=== PATIENT | male | born 1995 | race Caucasian/White ===

== ENCOUNTER 2021-02-11 15:48 | Emergency (ER) | payer BC ==
[~2021-02-11] VITALS: Ht 180.3 cm; Wt 131.9 kg
--- NOTE | 2021-02-11 16:41 | PHYS DOC ---
Past History Past Surgical History: Tonsillectomy, Other Additional Past Surgical Histo: nasal and septum surgery Alcohol Use: Occasionally General Adult EDM: Chief Complaint: HEMATEMESIS/VOMITING BLOOD HPI: HPI: 45-year-old male presents with hematemesis. The patient has had intermittent vomiting for years. He has been having blood in his emesis on occasion a couple months then every month and every weekend he states it is happening daily now. He is feeling generally weak overall and is concerned about anemia. Patient does not drink alcohol. She denies drug use. He has not seen a GI doctor. He does not like going to the doctor. He does have a GI consult scheduled for early next month. He is not on any medications. He denies fever or chills. Review of Systems: Review of Systems: Constitutional: Denies fever or chills Eyes: Denies change in visual acuity HENT: Denies nasal congestion or sore throat Respiratory: Denies cough or shortness of breath Cardiovascular: Denies chest pain or edema GI: Hematemesis : Denies dysuria Musculoskeletal: Denies back pain or joint pain Integument: Denies rash Neurologic: Denies headache, focal weakness or sensory changes Endocrine: Denies polyuria or polydipsia Lymphatic: Denies swollen glands Psychiatric: Denies depression or anxiety Current Medications: Current Meds: Current Medications Medications (Trade) Dose Ordered Sig/Claudia Start Time Stop Time Status Last Admin Dose Admin Iohexol (Omnipaque 300 Mg/ml) 75 ml 1X ONCE 02/11/21 16:45 02/11/21 16:46 UNV Pantoprazole Sodium (Protonix Vial) 80 mg 1X ONCE 02/11/21 16:45 02/11/21 16:46 UNV Sodium Chloride 1,000 ml @ 1,000 mls/hr 1X ONCE 02/11/21 16:45 02/11/21 17:44 UNV Allergies: Allergies: Allergies Coded Allergies Type Severity Reaction Last Updated Verified No Known Drug Allergies 02/11/21 No Physical Exam: PE: Constitutional: Well developed, well nourished, no acute distress, non-toxic appearance. [] HENT: Normocephalic, atraumatic, bilateral external ears normal, oropharynx moist, no oral exudates, nose normal. [] Eyes: PERRLA, EOMI, conjunctiva normal, no discharge. [] Neck: Normal range of motion, no tenderness, supple, no stridor. [] Cardiovascular:Heart rate regular rhythm, no murmur [] Lungs & Thorax: Bilateral breath sounds clear to auscultation [] Abdomen: Bowel sounds normal, soft, no tenderness, no masses, no pulsatile masses. [] Skin: Warm, dry, no erythema, no rash. [] Back: No tenderness, no CVA tenderness. [] Extremities: No tenderness, no cyanosis, no clubbing, ROM intact, no edema. [] Neurologic: Alert and oriented X 3, normal motor function, normal sensory function, no focal deficits noted. [] Psychologic: Affect normal, judgement normal, mood normal. [] Current Patient Data: Vital Signs: Vital Signs Date Time Temp Pulse Resp B/P (MAP) Pulse Ox O2 Delivery O2 Flow Rate FiO2 02/11/21 16:01 99.2 119 19 159/98 (118) 98 Room Air EKG: EKG: [] Radiology/Procedures: Radiology/Procedures: [] Impressions: Exam: CT of abdomen and pelvis with contrast INDICATION: Epigastric pain, hematemesis TECHNIQUE: Sequential axial images through the abdomen and pelvis obtained following the administration of 75 mL of Isovue-370 IV contrast. Sagittal and coronal reformatted images were reconstructed from the axial data and reviewed. Exposure: One or more of the following in the visualized dose reduction techniques were utilized for this examination: 1. Automated exposure control 2. Adjustment of the MA and/or KV according to patient size 3. Use of iterative of reconstructive technique Comparisons: None FINDINGS: Heart size is normal. No pericardial effusion. Visualized lung bases are clear. No pleural effusion. Liver, spleen, pancreas, gallbladder and adrenals are unremarkable. Kidneys demonstrate symmetric enhancement. No perinephric inflammation or hydronephrosis. No renal or ureteral calculi are identified. Bladder is partially distended and appears thin-walled. Prostate is not enlarged. Large and small bowel are unremarkable. Appendix is normal. No free abdominal air or fluid. No obstruction. Abdominal aorta has a normal course and caliber. Abdominal vasculature is patent. No enlarged intra-abdominal lymph nodes are identified. No suspicious osseous lesions or acute fractures. IMPRESSION: No acute processes identified within the abdomen or pelvis. Electronically signed by: Harmeet Briones MD (02/11/2021 5:27 PM) [facility] DICTATED AND SIGNED BY: HARMEET BRIONES MD DATE: 02/11/21 172 CC: CHRISTIANNE LOREDO DO; PCP,NO ~MTH0 0 Heart Score: C/O Chest Pain: N/A Risk Factors: Risk Factors: DM, Current or recent (<one month) smoker, HTN, HLP, family history of CAD, obesity. Risk Scores: Score 0 - 3: 2.5% MACE over next 6 weeks - Discharge Home Score 4 - 6: 20.3% MACE over next 6 weeks - Admit for Clinical Observation Score 7 - 10: 72.7% MACE over next 6 weeks - Early Invasive Strategies Course & Med Decision Making: Course & Med Decision Making Pertinent Labs and Imaging studies reviewed. (See chart for details) I have given the patient Protonix 80 mg, 4 mg Zofran, and a liter of normal saline. The patient CT of abdomen pelvis is negative for acute findings. His labs are unremarkable. His hemoglobin is normal. He has had no vomiting in the emergency room. I will place the patient on Protonix 40 mg daily and give him a prescription for Zofran. I have encouraged him strongly to keep his GI appointment. He is stable for discharge at this time. [] Dragon Disclaimer: Dragambar Disclaimer: This electronic medical record was generated, in whole or in part, using a voice recognition dictation system. Departure Departure: Impression: Primary Impression: Hematemesis Qualified Codes: K92.0 - Hematemesis Disposition: HOME / SELF CARE / HOMELESS Condition: STABLE Referrals: PCP,NO (PCP) Patient Instructions: Hematemesis Scripts Pantoprazole Sodium (PROTONIX) 40 Mg Tablet. 1 TAB PO DAILY for GERD, #30 TAB 0 Refills Prov: CHRISTIANNE LOREDO DO 02/11/21 Ondansetron (ONDANSETRON ODT) 4 Mg Tab.rapdis 1 TAB PO PRN Q6-8HRS PRN for VOMITING, #16 TAB Prov: CHRISTIANNE LOREDO DO 02/11/21 CHRISTIANNE LOREDO DO Feb 11, 2021 16:41
[2021-02-11] MEDS ORDERED: PANTOPRAZOLE IV 40 MG VIAL. IVP ONE (16:45)
[2021-02-11] MEDS ORDERED: IV NORMAL SALINE 1,000ML 1,000 ML IV ONE (16:45)
[2021-02-11] MEDS ORDERED: IOHEXOL 300 MG/ML 75 ML VIAL. IV ONE (16:45)
--- NOTE | 2021-02-11 17:30 | RAD ---
Exam: CT of abdomen and pelvis with contrast INDICATION: Epigastric pain, hematemesis TECHNIQUE: Sequential axial images through the abdomen and pelvis obtained following the administrati on of 75 mL of Isovue-370 IV contrast. Sagittal and coronal reformatted images were reconstructed fro m the axial data and reviewed. Exposure: One or more of the following in the visualized dose reduction techniques were utilized for this examination: 1. Automated exposure control 2. Adjustment of the MA and/or KV according to patient size 3. Use of iterative of reconstructive technique Comparisons: None FINDINGS: Heart size is normal. No pericardial effusion. Visualized lung bases are clear. No pleural effusion. Liver, spleen, pancreas, gallbladder and adrenals are unremarkable. Kidneys demonstrate symmetric enhancement. No perinephric inflammation or hydronephrosis. No renal or ureteral calculi are identified. Bladder is partially distended and appears thin-walled. Prostate is not enlarged. Large and small bowel are unremarkable. Appendix is normal. No free abdominal air or fluid. No obstru ction. Abdominal aorta has a normal course and caliber. Abdominal vasculature is patent. No enlarged intra-abdominal lymph nodes are identified. No suspicious osseous lesions or acute fractures. IMPRESSION: No acute processes identified within the abdomen or pelvis. Electronically signed by: Harmeet Loya MD (02/11/2021 5:27 PM) [facility]
[2021-02-11 17:37] LABS: BASO % 0 % (0-3); EOS % 1 % (0-3); HEMATOCRIT 48.6 % (39.0-53.0); HEMOGLOBIN 16.6 g/dL (13.0-17.5); LYMPH # 0.9 x10^3/uL (1.0-4.8); LYMPH % 19 % (24-48); MEAN CORPUSCULAR HEMOGLOBIN 32 pg (25-35); MEAN CORPUSCULAR HGB CONC 34 g/dL (31-37); MEAN CORPUSCULAR VOLUME 93 fL (79-100); MONO # 0.5 x10^3/uL (0.0-1.1); MONO % 10 % (0-9); NEUT # 3.4 x10^3uL (1.8-7.7); NEUT % 70 % (31-73); PLATELET COUNT 232 x10^3/uL (140-400); RED BLOOD COUNT 5.25 x10^6/uL (4.30-5.70); RED CELL DISTRIBUTION WIDTH 12.8 % (11.5-14.5); WHITE BLOOD COUNT 4.8 x10^3/uL (4.0-11.0)
[2021-02-11] MEDS ORDERED: ONDA4TAB12 PO (17:40)
[2021-02-11] MEDS ORDERED: PANT40TA3 PO (17:41)
[2021-02-11 17:42] LABS: CALCIUM 8.7 mg/dL (8.5-10.1); CREATININE 1.1 mg/dL (0.7-1.3); GFR 82.2; POTASSIUM 3.6 mmol/L (3.5-5.1)
[2021-02-11 17:47] LABS: ALBUMIN 4.1 g/dL (3.4-5.0); ALBUMIN/GLOBULIN RATIO 1.1 (1.0-1.7); TOTAL BILIRUBIN 0.6 mg/dL (0.2-1.0)
[2021-02-11 18:01] VITALS: BP 161/101
== END 2021-02-11 18:05 | disposition home or self-care (01) ==
LOC: EDBD 15:48 → ER 15:48
DX: K92.0 Hematemesis (principal); R10.13 Epigastric pain
CPT/HCPCS: 36415; 74177; 80053; 85025; 96361; 96374; 99284; C9113; J7030

== ENCOUNTER 2021-06-01 10:25 | Emergency (ER) | payer BC, OTHER ==
[~2021-06-01] VITALS: Ht 180.3 cm; Wt 123.0 kg
[~2021-06-01 10:25] MED LIST: ONDA4TAB12 PO; PANT40TA3 PO
[2021-06-01 10:44] VITALS: BP 148/76
[2021-06-01] MEDS ORDERED: FAMOTIDINE 20 MG/2 ML VIAL IVP ONE (11:00)
[2021-06-01] MEDS ORDERED: MORPHINE SULFATE 4 MG/ML DISP.SYRIN. IV ONE (11:00)
[2021-06-01] MEDS ORDERED: LIDO:MAALOX 1:1 20 ML SINGLE DOSE. PO ONE (11:00)
[2021-06-01] MEDS ORDERED: ONDANSETRON PF 4 MG/2 ML VIAL. IVP ONE (11:00)
[2021-06-01 11:26] LABS: BASO # 0.1 x10^3/uL (0.0-0.2); BASO % 1 % (0-3); EOS # 0.1 x10^3/uL (0.0-0.7); EOS % 1 % (0-3); HEMATOCRIT 44.6 % (39.0-53.0); HEMOGLOBIN 15.4 g/dL (13.0-17.5); LYMPH # 1.5 x10^3/uL (1.0-4.8); LYMPH % 18 % (24-48); MEAN CORPUSCULAR HEMOGLOBIN 32 pg (25-35); MEAN CORPUSCULAR HGB CONC 35 g/dL (31-37); MEAN CORPUSCULAR VOLUME 92 fL (79-100); MONO # 0.6 x10^3/uL (0.0-1.1); MONO % 8 % (0-9); NEUT % 73 % (31-73); PLATELET COUNT 296 x10^3/uL (140-400); RED BLOOD COUNT 4.84 x10^6/uL (4.30-5.70); RED CELL DISTRIBUTION WIDTH 12.6 % (11.5-14.5); WHITE BLOOD COUNT 8.3 x10^3/uL (4.0-11.0)
[2021-06-01 11:35] LABS: CALCIUM 8.7 mg/dL (8.5-10.1); CREATININE 0.9 mg/dL (0.7-1.3); GFR 102.8; POTASSIUM 3.8 mmol/L (3.5-5.1)
[2021-06-01 11:41] LABS: ALBUMIN 3.9 g/dL (3.4-5.0); ALBUMIN/GLOBULIN RATIO 1.2 (1.0-1.7); TOTAL BILIRUBIN 0.8 mg/dL (0.2-1.0); TOTAL PROTEIN 7.2 g/dL (6.4-8.2)
[2021-06-01] MEDS ORDERED: PANT40TA3 PO ×2 (12:17)
[2021-06-01] MEDS ORDERED: AMOX500T PO (12:17)
[2021-06-01] MEDS ORDERED: ONDA4TAB12 PO (12:17)
[2021-06-01] MEDS ORDERED: HYDR-2759 PO (12:17)
[2021-06-01] MEDS ORDERED: CLAR-7 PO (12:17)
--- NOTE | 2021-06-01 12:20 | PHYS DOC ---
Past History Past Surgical History: Tonsillectomy, Other Additional Past Surgical Histo: nasal and septum surgery Alcohol Use: Occasionally Adult General Chief Complaint Chief Complaint: NA[facility] H[facility] Patient is a 26 year old male who presents with epigastric pain. Patient has been having symptoms for over 1 year. His symptoms have been severely worse in the last week. Symptoms are worse after he eats food. Complains of burning and severe pain. Has had multiple episodes of emesis over the last 24 hours and inability to hold down any food or fluids. No recent fever. No hematemesis. He was evaluated in this emergency department in January of last year with a similar presentation. CT scan at that time was negative. Was placed on Protonix but does not sound like he ever filled that medication and is not currently taking any antacid type medicines. He does have scheduled appointment with GI next month but has not been further evaluated for the symptoms. Review of Systems Review of Systems Constitutional: Denies fever or chills Eyes: Denies change in visual acuity, redness, or eye pain HENT: Denies nasal congestion or sore throat Respiratory: Denies cough or shortness of breath Cardiovascular: No additional information not addressed in HPI GI: As documented in HPI : Denies Musculoskeletal: Denies Integument: Denies rash or skin lesions Neurologic: Denies headache Endocrine: Denies All other systems were reviewed and found to be within normal limits, except as documented in this note. Current Medications Current Medications Current Medications Medications (Trade) Dose Ordered Sig/Claudia Start Time Stop Time Status Last Admin Dose Admin Famotidine (Pepcid Vial) 20 mg 1X ONCE 06/01/21 11:00 06/01/21 11:02 DC 06/01/21 11:05 20 MG Morphine Sulfate (Morphine 4mg Syringe) 6 mg 1X ONCE 06/01/21 11:00 06/01/21 11:02 DC 06/01/21 11:06 6 MG Multi-Ingredient Mouthwash/Gargle (Gi Cocktail) 20 ml 1X ONCE 06/01/21 11:00 06/01/21 11:02 DC 06/01/21 11:05 20 ML Ondansetron HCl (Zofran) 4 mg 1X ONCE 06/01/21 11:00 06/01/21 11:02 DC 06/01/21 11:05 4 MG Allergies Allergies Allergies Coded Allergies Type Severity Reaction Last Updated Verified No Known Drug Allergies 02/11/21 No Physical Exam Physical Exam Constitutional: Well developed, well nourished, no acute distress, non-toxic appearance HENT: Moist mucous membranes, nares patent Eyes: PERRLA, EOMI Neck: Normal range of motion Cardiovascular:Heart rate regular rhythm, no murmur Lungs & Thorax: Bilateral breath sounds clear Abdomen: Subjectively tender to palpate over the epigastric area. No guarding or rebound. Skin: Warm, dry, no erythema Back: Normal range of motion Extremities: Grossly normal exam Neurologic: Alert and oriented X 3 Current Patient Data Vital Signs Vital Signs Date Time Temp Pulse Resp B/P (MAP) Pulse Ox O2 Delivery O2 Flow Rate FiO2 06/01/21 10:44 98.0 75 18 148/76 (100) 97 Room Air Lab Results Laboratory Tests Test 06/01/21 11:11 White Blood Count 8.3 x10^3/uL (4.0-11.0) Red Blood Count 4.84 x10^6/uL (4.30-5.70) Hemoglobin 15.4 g/dL (13.0-17.5) Hematocrit 44.6 % (39.0-53.0) Mean Corpuscular Volume 92 fL (79-100) Mean Corpuscular Hemoglobin 32 pg (25-35) Mean Corpuscular Hemoglobin Concent 35 g/dL (31-37) Red Cell Distribution Width 12.6 % (11.5-14.5) Platelet Count 296 x10^3/uL (140-400) Neutrophils (%) (Auto) 73 % (31-73) Lymphocytes (%) (Auto) 18 % (24-48) L Monocytes (%) (Auto) 8 % (0-9) Eosinophils (%) (Auto) 1 % (0-3) Basophils (%) (Auto) 1 % (0-3) Neutrophils # (Auto) 6.0 x10^3uL (1.8-7.7) Lymphocytes # (Auto) 1.5 x10^3/uL (1.0-4.8) Monocytes # (Auto) 0.6 x10^3/uL (0.0-1.1) Eosinophils # (Auto) 0.1 x10^3/uL (0.0-0.7) Basophils # (Auto) 0.1 x10^3/uL (0.0-0.2) Sodium Level 142 mmol/L (136-145) Potassium Level 3.8 mmol/L (3.5-5.1) Chloride Level 105 mmol/L (98-107) Carbon Dioxide Level 26 mmol/L (21-32) Anion Gap 11 (6-14) Blood Urea Nitrogen 13 mg/dL (8-26) Creatinine 0.9 mg/dL (0.7-1.3) Estimated GFR (Cockcroft-Gault) 102.8 BUN/Creatinine Ratio 14 (6-20) Glucose Level 84 mg/dL (70-99) Calcium Level 8.7 mg/dL (8.5-10.1) Total Bilirubin 0.8 mg/dL (0.2-1.0) Aspartate Amino Transferase (AST) 18 U/L (15-37) Alanine Aminotransferase (ALT) 39 U/L (16-63) Alkaline Phosphatase 70 U/L (46-116) Total Protein 7.2 g/dL (6.4-8.2) Albumin 3.9 g/dL (3.4-5.0) Albumin/Globulin Ratio 1.2 (1.0-1.7) Lipase 41 U/L (73-393) L EKG EKG [] Radiology/Procedures Radiology/Procedures [] Heart Score C/O Chest Pain: N/A Risk Factors: Risk Factors: DM, Current or recent (<one month) smoker, HTN, HLP, family history of CAD, obesity. Risk Scores: Risk Factors: DM, Current or recent (<one month) smoker, HTN, HLP, family history of CAD, obesity. Course & Med Decision Making Course & Med Decision Making Pertinent Labs and Imaging studies reviewed. (See chart for details) Seen and examined on arrival to his room. Overall, his abdominal exam is benign other than subjective tenderness. He recently had CT scan 3 months earlier. Will not repeat that study today. We will check labs today and give medication for symptom relief and do ultrasound. 13:00: ED summary: Patient seen in the ER for GERD-like symptoms. He has not had EGD prior to evaluate these symptoms. During the ER course, he undergoes ultrasound of the abdomen which does not show acute findings in the gallbladder or right upper quadrant. Labs are checked and are normal. IV is placed and he is given morphine along with Pepcid and GI cocktail. His symptoms are entirely resolved following these medications and he is feeling much improved. Stable for discharge home. Tolerating p.o. Patient has poor access to care and does not have primary care physician at the moment. He is empirically treated for H pylori with amoxicillin and clarithromycin. Placed on PPI therapy twice daily over the next 2 weeks and will take it daily after that. Follow-up with his already scheduled appointment with GI. Suman Disclaimer Suman Disclaimer This electronic medical record was generated, in whole or in part, using a voice recognition dictation system. Departure Departure: Impression: Primary Impression: GERD (gastroesophageal reflux disease) Disposition: HOME / SELF CARE / HOMELESS Admitting Physician: Other Condition: GOOD Referrals: PCPJACEY (PCP) Patient Instructions: Diet for Gastroesophageal Reflux Disease, Adult Scripts Hydrocodone Bit/Acetaminophen (HYDROCODONE-APAP 5-325 ) 1 Each Tablet 1 TAB PO PRN Q6HRS PRN for PAIN for 4 Days, #16 TAB 0 Refills Prov: THE[facility]ORA [facility] [employer] [facility] 06/01/21 Pantoprazole Sodium (PROTONIX) 40 Mg Tablet. 1 TAB PO DAILY, #30 TAB 2 Refills Prov: KRISTAL DESIR DO 06/01/21 Ondansetron (ONDANSETRON ODT) 4 Mg Tab.rapdis 4 MG PO Q6H for nausea or vomiting, #2 TAB 1 Refill Prov: KRISTAL DESIR DO 06/01/21 Clarithromycin (CLARITHROMYCIN) 500 Mg Tablet 500 MG PO BID for 14 Days, #28 TAB Prov: KRISTAL DESIR DO 06/01/21 Amoxicillin (AMOXICILLIN) 500 Mg Tablet 1 TAB PO BID for 14 Days, #28 TAB Prov: KRISTAL DESIR DO 06/01/21 Pantoprazole Sodium (PROTONIX) 40 Mg Tablet. 1 TAB PO BID for 14 Days, #28 TAB 0 Refills Prov: KRISTAL DESIR DO 06/01/21 KRISTAL DESIR DO Jun 01, 2021 12:20
[2021-06-01] MEDS ORDERED: HYDR-2155 PO (12:21)
--- NOTE | 2021-06-01 13:20 | RAD ---
EXAM: Abdomen sonogram. HISTORY: Epigastric pain. TECHNIQUE: Sonographic imaging of the abdomen was performed. COMPARISON: None. FINDINGS: The liver is normal in size. There is mild hepatic steatosis. No focal hepatic lesion is se en. The common bile duct is normal in caliber. The gallbladder is unremarkable. The right kidney is u nremarkable. The pancreas and inferior vena cava are obscured due to bowel gas. IMPRESSION: 1. Suspected mild hepatic steatosis. 2. Obscured midline structures due to bowel gas. 3. Unremarkable gallbladder. Electronically signed by: Sandy Contreras MD (06/01/2021 1:18 PM) [id number]
== END 2021-06-01 12:37 | disposition home or self-care (01) ==
LOC: ER 10:25
DX: K21.9 Gastro-esophageal reflux disease without esophagitis (principal)
CPT/HCPCS: 36415; 76705; 80053; 83690; 85025; 96374; 96375; 99284; J2270; J2405; J3490